=== PATIENT | male | born 1965 | race Caucasian/White ===

== ENCOUNTER → 2016-10-11 21:08 | Outpatient (CLI) | payer MEDICARE | END | disposition home or self-care (01) | LOC: D.LABREF 21:08 | PROVIDERS: Family Medicine | DX: Z20.2 Contact with and (suspected) exposure to infections with a predominantly sexual mode of transmission (principal) ==

== ENCOUNTER 2017-09-21 06:27 | Day surgery (SDC) | payer MEDICARE ==
[~2017-09-21] VITALS: Ht 182.9 cm; Wt 86.6 kg
--- NOTE | ~2017-09-21 | OP ---
PATIENT NAME: LINDSAY DIAMOND MEDICAL RECORD: [id number] :65 LOCATION:D.OPS ADMISSION DATE: SURGEON: GUY BALLARD MD DATE OF OPERATION: 09/21/2017 PREOPERATIVE DIAGNOSIS: Condylomata of the anus and rectum. POSTOPERATIVE DIAGNOSIS: Condylomata of the anus and rectum. PROCEDURES: 1. Total colonoscopy to cecum. 2. Endoscopic biopsies of condylomata with ablation utilizing the argon plasma capsule filling machine operator with the right colon setting in the forced mode. 3. Anal evaluation under anesthesia. 4. Fulguration of condylomata. SURGEON: Guy Ballard MD SCIENTIFIC TECHNICAL WRITER: None. BLOOD LOSS: Minimal. ANESTHESIA: General. COMPLICATIONS: None. The risks, possible complications, and alternatives to the procedure were explained to the patient. He elects to proceed. The discussion specifically included, but was not limited to, bleeding requiring an emergency reoperation, infection, intestinal perforation. OPERATIVE COURSE: The patient was conveyed to the operating room electively on 09/21/2017. General anesthesia was induced by the anesthesia staff. The patient was placed in the Irvin position. A digital rectal examination was performed. A colonoscope was inserted through the anus. It was easily advanced to the cecum. The ileum was intubated and appeared normal. I slowly withdrew the endoscope. The prep was adequate. A combination of normal imaging and narrow band imaging were utilized. I dragged the folds. I noted no colonic polyps or masses. A retroflexed view was obtained of the rectum. Anal condylomata were noted. I biopsied one of these utilizing the cold endoscopic biopsy forceps. I then ablated the anal condylomata with the argon plasma capsule filling machine operator. I then unretroflexed the scope and removed it under direct vision. With the patient still in the Irvin position, a well-lubricated U-shaped anal retractor was placed in the anus and I carefully inspected the anus for additional condylomata. I identified several of these and these were fulgurated with the argon plasma capsule filling machine operator. This was done with a vacuum in place to suck away the smoke. The U-shaped anal retractor was then removed. The patient was then extubated and conveyed to the post-anesthesia care unit where he was in stable condition. I plan to see him in my office in 2-3 weeks. I am not planning on another surveillance procedure in the next year, but perhaps another anal evaluation under anesthesia in about 5 years. TRANSINT:[id number] Voice Confirmation ID: [id number] DOCUMENT ID: [id number] OPERATIVE REPORT [id number] LINDSAY DIAMOND ROBERT MD at 1227 CC: [id number] DICTATION DATE: 09/21/17 0940 [employer] PORTAL CONSULTANT: 09/21/17 1036 [facility] 09/21/17 [id number] [place] [address]
[~2017-09-21 06:27] MED LIST: CYMBALTA30 MG PO; LIPITOR20 MG PO; LOTREL 5-40 MG1 EACH PO; MOBIC7.5 MG PO; TOPROL XL50 MG PO
[2017-09-21 07:07] LABS: HEMATOCRIT 40.9 % (42.0-54.0); HEMOGLOBIN 14.7 g/dL (13.5-17.5); MCH 32.4 pg (26.0-34.0); MCHC 35.9 g/dL (31.0-37.0); MCV 90.1 fL (80.0-100.0); RBC 4.54 10x6/uL (4.20-6.10); RDW 12.2 % (11.5-14.5); WBC 8.3 10x3/uL (4.8-10.8)
[2017-09-21 07:55] VITALS: BP 134/57; Ht 182.9 cm; Wt 86.6 kg
== END 2017-09-21 11:00 | disposition home or self-care (01) ==
LOC: D.OPS 06:27 → D.PAN 08:00 → D.OPS 11:00 → D.PAN 13:00
PROVIDERS: Anesthesiology
DX: A63.0 Anogenital (venereal) warts (principal); Z01.812 Encounter for preprocedural laboratory examination

== ENCOUNTER → 2018-08-23 09:46 | Outpatient (CLI) | payer MEDICARE ==
[~2018-08-23 09:46] MED LIST changes: +KEFLEX500 MG PO
== END | disposition home or self-care (01) ==
LOC: D.US 09:46
DX: R60.0 Localized edema (principal)

== ENCOUNTER 2018-09-20 07:26 | Day surgery (SDC) | payer MEDICARE | END 2018-09-20 12:45 | disposition home or self-care (01) | LOC: D.OPS 07:26 | DX: L05.91 Pilonidal cyst without abscess (principal); Z01.812 Encounter for preprocedural laboratory examination ==